=== PATIENT | female | born 1985 | race African-American/Black ===

== ENCOUNTER 2024-04-12 04:04 | Emergency (ER) | payer MEDICAID ==
[~2024-04-12] VITALS: Ht 154.9 cm; Wt 50.0 kg
[2024-04-12 04:32] VITALS: O2SAT 100
[2024-04-12 05:12] LABS: BASOPHILS % 0.9 % (0.0-2.0); EOSINOPHILS % 0.9 % (0.0-5.0); HEMATOCRIT. 42.5 % (36.0-48.0); HEMOGLOBIN. 14.1 g/dL (12.0-16.0); MEAN CORPUSCULAR HEMOGLOBIN 29.2 pg (28.0-32.0); MEAN CORPUSCULAR HGB CONC 33.1 g/dL (31.0-37.0); MEAN CORPUSCULAR VOLUME 88.4 fL (81.0-99.0); MEAN PLATELET VOLUME 7.9 fl (7.4-10.4); NEUTROPHILS % 77.2 % (40.0-76.0); PLATELET 283 x1000/uL (130-400); RED BLOOD CELL COUNT 4.81 mill/uL (4.2-5.4); RED CELL DISTRIBUTION WIDTH 13.8 % (11.6-14.6); WHITE BLOOD COUNT 9.1 x1000/uL (4.5-11.0)
[2024-04-12 05:19] LABS: CHLORIDE 109 mEq/L (98-107); POTASSIUM 4.2 mEq/L (3.5-5.1); SODIUM 140 mEq/L (136-145)
[2024-04-12 05:20] LABS: CARBON DIOXIDE 25 mEq/L (21-32)
[2024-04-12 05:21] LABS: CALCIUM 9.5 mg/dL (8.7-10.4)
[2024-04-12 05:25] LABS: CREATININE 0.7 mg/dL (0.6-1.0); GLUCOSE 85 mg/dL (70-105); UREA NITROGEN BLOOD 11 mg/dL (9-23)
[2024-04-12] MEDS: LEVETIRACETAM 500MG PREMIX 100 ML IV ONE (05:34)
[2024-04-12] MEDS: ONDANSETRON HCL 4MG/2ML INJ IV STA (05:34)
[2024-04-12] MEDS: MORPHINE SULFATE 4 MG/ML INJ (FOR IV/IM USE) IV STA (05:34)
[2024-04-12] MEDS: LORAZEPAM 2MG/ML INJ IV ONE (05:34)
[2024-04-12] MEDS: SODIUM CHLORIDE 0.9% 1,000 ML IV ONE (05:34)
[2024-04-12 05:45] VITALS: TEMP 36.66960
[2024-04-12] MEDS ORDERED: KEPP500 MT (06:26)
[2024-04-12 07:01] VITALS: BP 108/74; PULSE 80; RESP 18; O2SAT 99
== END 2024-04-12 07:06 | disposition home or self-care (01) ==
LOC: ER 04:22
DX: R56.9 Unspecified convulsions (principal)
CPT/HCPCS: 80048; 85025; 36415; 96365; 96375; 99284; J1953; J2060; J2405; J2270; J7030; Z7610 ×5